=== PATIENT | male | born 1965 | race Caucasian/White ===

== ENCOUNTER 2016-08-01 05:41 | Emergency (ER) | payer OTHER ==
[~2016-08-01] VITALS: Ht 162.6 cm; Wt 79.5 kg
[2016-08-01] MEDS ORDERED: NEOMYCIN/POLYMYXIN B/HYDROCORT 10 ML OTIC SUSPENSION AD ONE (06:45)
[2016-08-01] MEDS ORDERED: IBUPROFEN 600 MG TABLET PO ONE (07:00)
[2016-08-01 07:04] VITALS: BP 137/86
== END 2016-08-01 07:12 | disposition home or self-care (01) ==
LOC: EMS 05:42
DX: H60.91 Unspecified otitis externa, right ear (principal)
CPT/HCPCS: 99283

== ENCOUNTER 2022-07-04 12:35 | Inpatient (IN) | payer OTHER ==
[~2022-07-04] VITALS: Ht 167.6 cm; Wt 72.9 kg
[2022-07-04] MEDS ORDERED: 0.9% SODIUM CHLORIDE 10 ML SYRINGE IVP PRN (13:00)
[2022-07-04] MEDS ORDERED: SODIUM CHLORIDE 0.9% 2,300 ML IV ONE (13:00)
[2022-07-04 13:43] LABS: BASOPHILS % (AUTO) 0.1 % (0.0-2.0); EOSINOPHILS % (AUTO) 0.1 % (1.0-6.0); HEMATOCRIT 53.4 % (41-53); HEMOGLOBIN 17.9 g/dL (13.5-17.5); LYMPHOCYTES # (AUTO) 0.9 K/uL (1.0-4.8); LYMPHOCYTES % (AUTO) 8.9 % (22.0-44.0); MEAN CORPUSCULAR HEMOGLOBIN 31.9 pg (26.0-34.0); MEAN CORPUSCULAR HGB CONC 33.6 G/dL (31.0-37.0); MEAN CORPUSCULAR VOLUME 95 fL (80-100); MONOCYTES # (AUTO) 1.1 K/uL (0.1-1.0); MONOCYTES % (AUTO) 11.3 % (2.0-9.0); NEUTROPHILS % (AUTO) 79.6 % (40.0-70.0); PLATELET COUNT (AUTO) 146 K/uL (150-450); RED BLOOD CELL COUNT(AUTO) 5.63 MIL/uL (4.50-5.90); RED CELL DISTRIBUTION WIDTH 13.8 % (11.5-14.5)
[2022-07-04 13:53] LABS: COVID AG,FIA SOURCE NASAL SWAB
[2022-07-04 13:57] LABS: D-DIMER 7.23 mg/L FEU (0.00-0.50); INR 1.2 (0.9-1.1); PROTHROMBIN TIME 12.7 SEC (9.4-11.6)
[2022-07-04 13:58] LABS: B-TYPE NATRIURETIC PEPTIDE 6 pg/mL (0-100)
[2022-07-04 14:02] LABS: LACTIC ACID 3.1 mmol/L (0.4-2.0)
[2022-07-04 14:18] LABS: INFLUENZA TYPE A NEGATIVE FOR TYPE A (NEGATIVE); INFLUENZA TYPE B NEGATIVE FOR TYPE B (NEGATIVE)
[2022-07-04 14:21] LABS: ALANINE AMINOTRANSFERASE 42 U/L (12-78); ALBUMIN 2.6 g/dL (3.4-5.0); ALKALINE PHOSPHATASE 88 U/L (46-116); ANION GAP 14 mmol/L (8-16); ASPARTATE AMINOTRANSFERASE 54 U/L (15-37); BILIRUBIN,TOTAL 0.8 mg/dL (0.1-1.0); CALCIUM, TOTAL 7.9 mg/dL (8.8-10.5); CARBON DIOXIDE 18 mmol/L (22-29); CHLORIDE 88 mmol/L (98-107); CREATINE KINASE, TOTAL ONLY 172 U/L (39-308); CREATININE 2.71 mg/dL (0.60-1.30); GLUCOSE,RANDOM 123 mg/dL (70-110); POTASSIUM 4.7 mmol/L (3.5-5.1); TOTAL PROTEIN, SERUM 7.5 g/dL (6.4-8.2); UREA NITROGEN, BLOOD 53 mg/dL (7-18)
[2022-07-04 14:22] LABS: GLOMERULAR FILTR. RATE CALC 24 mL/min (>60)
[2022-07-04 14:23] LABS: SODIUM SERUM 120 mmol/L (136-145)
[2022-07-04] MEDS ORDERED: PIPERACILLIN/TAZO 3.375 GM/D5W 50 ML IV ONE (14:30)
[2022-07-04 15:38] LABS: AMPHET/METH SCREEN,URINE POSITIVE (NEGATIVE); BARBITURATE SCREEN, URINE NEGATIVE (NEGATIVE); BENZODIAZEPINES SCREEN,URINE NEGATIVE (NEGATIVE); CANNABINOID SCREEN,URINE NEGATIVE (NEGATIVE); COCAINE SCREEN,URINE NEGATIVE (NEGATIVE); METHADONE SCREEN, URINE NEGATIVE (NEGATIVE); OPIATE SCREEN,URINE NEGATIVE (NEGATIVE)
[2022-07-04 15:43] LABS: PHENCYCLIDINE SCREEN,URINE NEGATIVE (NEGATIVE)
[2022-07-04] MEDS ORDERED: *CLINICAL-LEVOFLOXACIN IVPB DOSING CLINICAL ONE (15:45)
[2022-07-04] MEDS ORDERED: MORPHINE SULFATE 2 MG/ML SYRINGE IVP PRN (15:45)
[2022-07-04] MEDS ORDERED: HYDROCODONE/ACETAMINOPHEN 5-325 MG TABLET PO PRN (15:45)
[2022-07-04] MEDS ORDERED: MAGNESIUM HYDROXIDE SUSPENSION 30 ML UDCUP PO PRN (15:45)
[2022-07-04] MEDS ORDERED: ONDANSETRON HCL 4 MG/2 ML VIAL IVP PRN (15:45)
[2022-07-04] MEDS ORDERED: BISACODYL 10 MG RECTAL RECTAL SUPPOSITORY PR PRN (15:45)
[2022-07-04] MEDS ORDERED: SODIUM BICARBONATE 100 MEQ in SODIUM CHLORIDE 0.45% 1,000 ML IV ONE (15:45)
[2022-07-04] MEDS ORDERED: ACETAMINOPHEN 325 MG TABLET PO PRN (15:45)
[2022-07-04 15:51] LABS: CALCIUM, TOTAL 6.7 mg/dL (8.8-10.5); CREATININE 1.95 mg/dL (0.60-1.30); POTASSIUM 5.1 mmol/L (3.5-5.1)
[2022-07-04 16:27] LABS: APPEARANCE,URINE CLEAR (CLEAR); BILIRUBIN,URINE NEGATIVE (NEGATIVE); GLUCOSE, URINE (UA) NEGATIVE (NEGATIVE); KETONES,URINE NEGATIVE (NEGATIVE); LEUKOCYTE ESTERASE ,URINE NEGATIVE (NEGATIVE); NITRATE,URINE NEGATIVE (NEGATIVE); OCCULT BLOOD,URINE SMALL (NEGATIVE); PH,URINE 5.5 (5.0-8.0); PROTEIN,URINE 30-70 mg/dL (NEGATIVE); UROBILINOGEN,URINE <=1.0 mg/dL (<=1.0)
[2022-07-04 16:30] LABS: MAGNESIUM 2.4 mg/dL (1.80-2.40); PHOSPHORUS 3.8 mg/dL (2.5-4.9)
[2022-07-04] MEDS: HEPARIN SODIUM,PORCINE 5,000 UNITS/ML VIAL SQ SCH ×2 (16:35→23:57)
[2022-07-04] MEDS: MetroNIDAZOLE 500 MG TABLET PO SCH ×2 (16:35→23:57)
[2022-07-04 16:37] LABS: CREATININE,URINE RANDOM 71.8 mg/dL (30.0-125.0)
[2022-07-04 16:48] LABS: BACTERIA,URINE None Seen /HPF (None Seen); RBC,URINE 0-2 /HPF (0-2); WBC,URINE 0-2 /HPF (0-5)
[2022-07-04 16:49] LABS: SQUAMOUS EPITHELIAL CELL,UR Few /LPF (None Seen)
[2022-07-04] MEDS ORDERED: LEVOFLOXACIN 750 MG/D5% WATER 150 ML IV SCH (17:00)
[2022-07-04] MEDS: DOCUSATE SODIUM 100 MG CAPSULE PO SCH ×2 (20:10→20:12)
[2022-07-04 23:53] LABS: CALCIUM, TOTAL 7.5 mg/dL (8.8-10.5); CREATININE 1.41 mg/dL (0.60-1.30); POTASSIUM 4.7 mmol/L (3.5-5.1)
[2022-07-05 06:09] LABS: BASOPHILS % (AUTO) 0.1 % (0.0-2.0); EOSINOPHILS % (AUTO) 0.4 % (1.0-6.0); HEMATOCRIT 46.5 % (41-53); HEMOGLOBIN 15.9 g/dL (13.5-17.5); LYMPHOCYTES # (AUTO) 0.6 K/uL (1.0-4.8); LYMPHOCYTES % (AUTO) 5.9 % (22.0-44.0); MEAN CORPUSCULAR HEMOGLOBIN 32.4 pg (26.0-34.0); MEAN CORPUSCULAR HGB CONC 34.3 G/dL (31.0-37.0); MEAN CORPUSCULAR VOLUME 94 fL (80-100); MONOCYTES # (AUTO) 1.3 K/uL (0.1-1.0); NEUTROPHILS # (AUTO) 8.2 K/uL (1.8-7.7); NEUTROPHILS % (AUTO) 80.6 % (40.0-70.0); PLATELET COUNT (AUTO) 136 K/uL (150-450); RED BLOOD CELL COUNT(AUTO) 4.93 MIL/uL (4.50-5.90); RED CELL DISTRIBUTION WIDTH 13.9 % (11.5-14.5)
[2022-07-05 06:22] LABS: ANION GAP 9 mmol/L (8-16); CALCIUM, TOTAL 7.6 mg/dL (8.8-10.5); CARBON DIOXIDE 23 mmol/L (22-29); CHLORIDE 94 mmol/L (98-107); CREATININE 1.11 mg/dL (0.60-1.30); GLUCOSE,RANDOM 88 mg/dL (70-110); SODIUM SERUM 126 mmol/L (136-145); UREA NITROGEN, BLOOD 27 mg/dL (7-18)
[2022-07-05 07:02] LABS: GLOMERULAR FILTR. RATE CALC > 60 mL/min (>60)
[2022-07-05 08:00] VITALS: BP 108/66
[2022-07-05] MEDS: MetroNIDAZOLE 500 MG TABLET PO SCH ×2 (08:39→16:54)
[2022-07-05] MEDS: PANTOPRAZOLE SODIUM 40 MG DR TABLET PO SCH (08:40)
[2022-07-05] MEDS: HEPARIN SODIUM,PORCINE 5,000 UNITS/ML VIAL SQ SCH ×2 (08:40→16:54)
[2022-07-05] MEDS: DOCUSATE SODIUM 100 MG CAPSULE PO SCH ×2 (08:40→20:06)
[2022-07-05] MEDS: DEXAMETHASONE 4 MG TABLET PO SCH (08:45)
[2022-07-05 08:58] LABS: PLATELET MORPHOLOGY COMMENT GIANT PLTS PRESENT
[2022-07-05 12:00] VITALS: BP 100/70
[2022-07-05 15:15] VITALS: BP 97/65
[2022-07-05] MEDS: SODIUM CHLORIDE 1 GM TABLET PO SCH (16:54)
[2022-07-05] MEDS ORDERED: SODIUM CHLORIDE 0.9% 250 ML IV ONE (16:56)
[2022-07-05] MEDS: LEVOFLOXACIN 750 MG/D5% WATER 150 ML IV SCH (16:56)
[2022-07-05 20:00] VITALS: BP 113/73
[2022-07-06] VITALS: BP 125/80
[2022-07-06] MEDS: SODIUM CHLORIDE 1 GM TABLET PO SCH ×3 (01:52→16:53)
[2022-07-06] MEDS: ZOLPIDEM TARTRATE 5 MG TABLET PO PRN ×2 (01:52→22:49)
[2022-07-06] MEDS: HEPARIN SODIUM,PORCINE 5,000 UNITS/ML VIAL SQ SCH ×3 (01:52→16:53)
[2022-07-06] MEDS: MetroNIDAZOLE 500 MG TABLET PO SCH ×3 (01:52→16:53)
[2022-07-06 05:48] LABS: C.DIFF GDH ANTIGEN, Stool Negative (Negative); C.DIFF TOXINS A&B, Stool Negative (Negative)
[2022-07-06 06:14] LABS: ANION GAP 9 mmol/L (8-16); CALCIUM, TOTAL 7.9 mg/dL (8.8-10.5); CARBON DIOXIDE 22 mmol/L (22-29); CHLORIDE 99 mmol/L (98-107); CREATININE 0.81 mg/dL (0.60-1.30); GLUCOSE,RANDOM 115 mg/dL (70-110); MAGNESIUM 2.4 mg/dL (1.80-2.40); PHOSPHORUS 2.4 mg/dL (2.5-4.9); POTASSIUM 4.6 mmol/L (3.5-5.1); SODIUM SERUM 130 mmol/L (136-145); UREA NITROGEN, BLOOD 18 mg/dL (7-18)
[2022-07-06 06:18] LABS: BASOPHILS % (AUTO) 0.1 % (0.0-2.0); EOSINOPHILS % (AUTO) 0 % (1.0-6.0); HEMATOCRIT 44.3 % (41-53); HEMOGLOBIN 15.2 g/dL (13.5-17.5); LYMPHOCYTES # (AUTO) 0.4 K/uL (1.0-4.8); LYMPHOCYTES % (AUTO) 4.7 % (22.0-44.0); MEAN CORPUSCULAR HEMOGLOBIN 32.2 pg (26.0-34.0); MEAN CORPUSCULAR HGB CONC 34.2 G/dL (31.0-37.0); MEAN CORPUSCULAR VOLUME 94 fL (80-100); MONOCYTES # (AUTO) 1.3 K/uL (0.1-1.0); MONOCYTES % (AUTO) 14.2 % (2.0-9.0); NEUTROPHILS # (AUTO) 7.2 K/uL (1.8-7.7); PLATELET COUNT (AUTO) 151 K/uL (150-450); RED BLOOD CELL COUNT(AUTO) 4.71 MIL/uL (4.50-5.90); RED CELL DISTRIBUTION WIDTH 13.6 % (11.5-14.5)
[2022-07-06 06:52] LABS: GLOMERULAR FILTR. RATE CALC > 60 mL/min (>60)
[2022-07-06 06:54] VITALS: BP 114/70
[2022-07-06 08:01] LABS: PLATELET MORPHOLOGY COMMENT GIANT PLTS PRESENT
[2022-07-06] MEDS: DEXAMETHASONE 4 MG TABLET PO SCH (08:21)
[2022-07-06] MEDS: PANTOPRAZOLE SODIUM 40 MG DR TABLET PO SCH (08:21)
[2022-07-06] MEDS: DOCUSATE SODIUM 100 MG CAPSULE PO SCH ×2 (08:22→20:50)
[2022-07-06 08:48] VITALS: BP 113/67
[2022-07-06 10:32] VITALS: BP 111/64
[2022-07-06] MEDS ORDERED: SODIUM CHLORIDE 0.9% 250 ML IV ONE (13:34)
[2022-07-06 14:22] VITALS: BP 125/70
[2022-07-06] MEDS: LEVOFLOXACIN 750 MG/D5% WATER 150 ML IV SCH (16:53)
[2022-07-06 19:44] VITALS: BP 118/58
[2022-07-07] MEDS: MetroNIDAZOLE 500 MG TABLET PO SCH ×2 (01:24→08:48)
[2022-07-07] MEDS: HEPARIN SODIUM,PORCINE 5,000 UNITS/ML VIAL SQ SCH ×2 (01:25→08:48)
[2022-07-07] MEDS: SODIUM CHLORIDE 1 GM TABLET PO SCH ×2 (01:25→08:48)
[2022-07-07 04:00] VITALS: BP 119/69
[2022-07-07 06:49] LABS: BASOPHILS % (AUTO) 0.2 % (0.0-2.0); EOSINOPHILS % (AUTO) 0.1 % (1.0-6.0); HEMATOCRIT 42.8 % (41-53); HEMOGLOBIN 14.7 g/dL (13.5-17.5); LYMPHOCYTES # (AUTO) 0.7 K/uL (1.0-4.8); LYMPHOCYTES % (AUTO) 6.5 % (22.0-44.0); MEAN CORPUSCULAR HEMOGLOBIN 32.1 pg (26.0-34.0); MEAN CORPUSCULAR HGB CONC 34.3 G/dL (31.0-37.0); MEAN CORPUSCULAR VOLUME 94 fL (80-100); MONOCYTES # (AUTO) 1.6 K/uL (0.1-1.0); MONOCYTES % (AUTO) 14.7 % (2.0-9.0); NEUTROPHILS # (AUTO) 8.3 K/uL (1.8-7.7); NEUTROPHILS % (AUTO) 78.5 % (40.0-70.0); PLATELET COUNT (AUTO) 158 K/uL (150-450); RED BLOOD CELL COUNT(AUTO) 4.57 MIL/uL (4.50-5.90); RED CELL DISTRIBUTION WIDTH 13.7 % (11.5-14.5)
[2022-07-07 07:06] LABS: ANION GAP 7 mmol/L (8-16); CALCIUM, TOTAL 7.8 mg/dL (8.8-10.5); CARBON DIOXIDE 23 mmol/L (22-29); CHLORIDE 101 mmol/L (98-107); CREATININE 0.75 mg/dL (0.60-1.30); GLUCOSE,RANDOM 95 mg/dL (70-110); PHOSPHORUS 2.2 mg/dL (2.5-4.9); POTASSIUM 4.3 mmol/L (3.5-5.1); SODIUM SERUM 131 mmol/L (136-145); UREA NITROGEN, BLOOD 15 mg/dL (7-18)
[2022-07-07 07:07] LABS: GLOMERULAR FILTR. RATE CALC > 60 mL/min (>60)
[2022-07-07 08:04] LABS: PLATELET MORPHOLOGY COMMENT GIANT PLTS PRESENT
[2022-07-07 08:32] VITALS: BP 123/66
[2022-07-07] MEDS: PANTOPRAZOLE SODIUM 40 MG DR TABLET PO SCH (08:48)
[2022-07-07] MEDS: DEXAMETHASONE 4 MG TABLET PO SCH (08:48)
[2022-07-07] MEDS: DOCUSATE SODIUM 100 MG CAPSULE PO SCH (08:48)
[2022-07-07] MEDS ORDERED: SODIUM,POTASSIUM PHOSPHATES POWDER PACKET PO SCH (09:00)
[2022-07-07] MEDS ORDERED: DEXA4 PO (11:47)
[2022-07-07] MEDS ORDERED: METR500 PO (11:47)
[2022-07-07] MEDS ORDERED: NACL1 PO (11:47)
[2022-07-07] MEDS ORDERED: LEVO-72 PO (11:48)
[2022-07-07 12:16] VITALS: BP 112/63
== END 2022-07-07 12:55 | disposition home or self-care (01) | DRG 871 ==
LOC: EMS 12:45 → 5S 18:54
PROVIDERS: ADMIT Internal Medicine; ATTEND Internal Medicine
DX: A41.9 Sepsis, unspecified organism (principal); J12.82 Pneumonia due to coronavirus disease 2019; U07.1 COVID-19; N17.0 Acute kidney failure with tubular necrosis; E87.1 Hypo-osmolality and hyponatremia; E87.20 Acidosis, unspecified; R65.20 Severe sepsis without septic shock; D75.1 Secondary polycythemia; E83.51 Hypocalcemia; F15.10 Other stimulant abuse, uncomplicated; K52.9 Noninfective gastroenteritis and colitis, unspecified; E88.09 Other disorders of plasma-protein metabolism, not elsewhere classified; I95.9 Hypotension, unspecified; E86.0 Dehydration; Z87.891 Personal history of nicotine dependence; Z28.310 Unvaccinated for COVID-19
CPT/HCPCS: 71045; 74176; 80048; 80053; 80307; 81001; 82306; 82533; 82550; 82570; 83605; 83735; 83880; 83930; 83935; 84100; 84145; 84300; 84443; 84484; 84540; 85025; 85379; 85610; 85730; 87040; 87324; 87449; 87804; 93005; 99291; J1644; J1956; J2270; J2543; J3490; J7030; J7050; J8540; 36415-L1; 36415-TC

== ENCOUNTER 2022-07-22 16:20 | Emergency (ER) | payer OTHER ==
[~2022-07-22] VITALS: Ht 167.6 cm; Wt 75.0 kg
[~2022-07-22 16:20] MED LIST: DEXA4 PO; LEVO-72 PO; METR500 PO; NACL1 PO
[2022-07-22 16:38] LABS: COVID AG,FIA SOURCE NASOPHARYNGEAL
[2022-07-22 17:31] VITALS: BP 134/73
== END 2022-07-22 17:36 | disposition home or self-care (01) ==
LOC: EMS 16:23
DX: Z01.84 Encounter for antibody response examination (principal); F17.210 Nicotine dependence, cigarettes, uncomplicated; Z20.822 Contact with and (suspected) exposure to COVID-19
CPT/HCPCS: 99283